=== PATIENT | female | born 1940 | race Caucasian/White ===

== ENCOUNTER 2018-04-30 14:47 | Emergency (ER) | payer MEDICARE, OTHER ==
[2018-04-30] MEDS: DEXAMETHASONE 10 MG/ML 1 ML INJ IM (15:45)
[2018-04-30] MEDS: KETOROLAC 15 MG INJ IM (15:46)
== END 2018-04-30 16:33 | disposition home or self-care (01) ==
LOC: FTE 14:47
DX: M54.42 Lumbago with sciatica, left side (principal); I10 Essential (primary) hypertension
CPT/HCPCS: 96372; 99284-25